=== PATIENT | male | born 2005 | race African-American/Black ===

== ENCOUNTER 2025-03-26 11:00 | Emergency (ER) | payer BC ==
[2025-03-26 11:06] VITALS: BP 124/79; PULSE 74; RESP 18; TEMP 98.8; BMI 42.3
[2025-03-26] MEDS ORDERED: ACETAMINOPHEN 500 MG TABLET (FP) ONE (12:01)
[2025-03-26] MEDS ORDERED: IBUPROFEN 400 MG TABLET (FP) PO ONE (12:01)
[2025-03-26] MEDS: IBUPROFEN 400 MG TABLET (FP) PO ONE (12:03)
[2025-03-26] MEDS: ACETAMINOPHEN 500 MG TABLET (FP) PO ONE (12:04)
== END 2025-03-26 13:40 | disposition home or self-care (01) ==
LOC: FER 11:00
PROC: 2W3RX1Z Immobilization of Left Lower Leg using Splint (ICD-10-PCS; principal; 2025-03-26)
DX: S93.492A Sprain of other ligament of left ankle, initial encounter (principal); X50.1XXA Overexertion from prolonged static or awkward postures, initial encounter; Y93.67 Activity, basketball
CPT/HCPCS: 73610-TC-LT-FY; 73630-TC-LT; 99283-25